=== PATIENT | female | born 1985 | race Caucasian/White ===

== ENCOUNTER 2025-01-24 16:57 | Emergency (ER) | payer BC, OTHER ==
[2025-01-24] MEDS ORDERED: Lidocaine Viscous Sol 2% 15 ml UD Cup ONE (17:19)
== END 2025-01-24 17:55 | disposition home or self-care (01) ==
LOC: NAV ERS 16:57
DX: K05.219 Aggressive periodontitis, localized, unspecified severity (principal); K02.9 Dental caries, unspecified
CPT/HCPCS: 10060